=== PATIENT | female | born 1940 | race Caucasian/White ===

== ENCOUNTER → 2018-07-15 | Outpatient (CLI) | payer OTHER | LOC: CLAB 09:52 → EDSTATUS 09:55 → CIMAGING 09:55 | PROVIDERS: ATTEND Family Medicine | DX: M16.12 Unilateral primary osteoarthritis, left hip (principal); M51.37 Other intervertebral disc degeneration, lumbosacral region; I87.1 Compression of vein | CPT/HCPCS: 72200-PO ==

== ENCOUNTER → 2018-08-23 | Outpatient (CLI) | payer OTHER | LOC: FIMAGING 18:23 | PROVIDERS: ATTEND Psychiatry & Neurology Neurology | DX: R41.3 Other amnesia (principal); I67.9 Cerebrovascular disease, unspecified ==